=== PATIENT | male | born 1995 | race Two or more races ===

== ENCOUNTER 2017-02-12 18:30 | Emergency (ER) | payer SELFPAY ==
[~2017-02-12] VITALS: Ht 185.4 cm; Wt 90.7 kg
[2017-02-12] MEDS ORDERED: HYDROcodone-ACET 5/325MG TAB PO ONE (21:00)
[2017-02-12] MEDS ORDERED: AMOXICILLIN/CLAVUL 875 MG TAB PO ONE ×4 (22:30)
[2017-02-12] MEDS ORDERED: AMOXICILLIN/CLAVUL 875 MG TAB ONE (22:33)
[2017-02-12 22:41] VITALS: BP 136/69
== END 2017-02-12 23:38 | disposition home or self-care (01) ==
LOC: ER 18:37
DX: S06.0X0A Concussion without loss of consciousness, initial encounter (principal); S02.80XA Fracture of other specified skull and facial bones, unspecified side, initial encounter for closed fracture; S02.40EA Zygomatic fracture, right side, initial encounter for closed fracture; W22.8XXA Striking against or struck by other objects, initial encounter; Y93.66 Activity, soccer; Y99.8 Other external cause status; Y92.218 Other school as the place of occurrence of the external cause
CPT/HCPCS: 70450; 70486; 72125